=== PATIENT | male | born 1985 ===

== ENCOUNTER 2024-04-23 13:14 | Emergency (ER) | payer OTHER, SELFPAY ==
[2024-04-23] VITALS (12 sets, daily range): BP systolic 114–125; BP diastolic 69–91; BMI 30.9
[2024-04-23 14:03] LABS: Hematocrit 23.5 % (39.0-52.0); Hemoglobin 8.7 g/dL (13.0-18.0); Mean Corpuscular Hgb 33.7 pg (27.0-31.0); Mean Corpuscular Volume 91.1 fL (80.0-94.0); Red Blood Cell Count 2.58 10^6/uL (4.70-6.10); Red Cell Dist. Width 17.2 % (11.5-14.5)
[2024-04-23 14:17] LABS: ALT (SGPT) 36 U/L (0-50); AST (SGOT) 23 U/L (17-59); Albumin 4.1 g/dl (3.5-5.0); Alkaline Phosphatase 91 U/L (38-126); Blood Urea Nitrogen 18 mg/dl (9-20); Carbon Dioxide 26 mmol/L (22-30); Chloride 105 mmol/L (98-107); Glucose 105 mg/dl (70-99); Potassium 3.6 mmol/L (3.5-5.1); Sodium 140 mmol/L (135-145); Total Bilirubin 0.4 mg/dl (0.2-1.3); Total Protein 7.2 g/dl (6.3-8.2); eGFR > 60.00
[2024-04-23 14:30] LABS: Platelet Count 6 10^3/uL (130-400)
--- NOTE | 2024-04-23 15:12 | ED.GENMED ---
History of Present Illness
General
Chief Complaint: Fever
Source: patient
Time Seen by Provider: 04/23/24 14:37
History of Present Illness
History of Present Illness:
38-year-old male presents to the emergency room complaining of coughing up blood today. Patient has been feeling unwell for the past couple weeks. He has had fever, chills, malaise initially. Over the past several days he has developed some GI
discomfort and diarrhea. He describes the diarrhea as watery. He denies blood in the stool. Over the next 24 hours for the patient began experiencing hemoptysis. The amount of blood is more significant than blood-tinged sputum. He did provide a
picture which shows less than a teaspoon of blood without clots. He denies shortness of breath. Patient has experienced some easy bruising over the past several days as well.
Phy Exam
Physical Exam
Physical Exam:
General: Awake, Alert, Oriented X3. No distress, appears pale
Vitals: unremarkable
Head: Atraumatic
Eyes: Pupils equal, EOMI, pale conjunctiva
Throat: Airway intact, no exudates, 1 purpuric appearing lesion on the soft palate on the left
Neck: Trachea midline
Lungs: Clear and equal b/l
Heart: Regular rate, no murmurs
Abd: Soft, Nontender, No pulsatile mass
Neuro: Nonfocal
Skin: Warm, dry, no petechia or purpura noted, ecchymosis noted on the right calf, right low back, left arm.
Extremities: pulses equal b/l, no edema, brisk capillary refill
Course
Orders/Labs/Results
Orders:
Orders
04/23/24 13:46
Complete Blood Count/With Diff Urgent
Comprehensive Metabolic Panel Urgent
Manual Differential Urgent
Blood Culture Urgent
MEDARDO Source: Blood/Venous
Specimen Description:
04/23/24 14:54
CR Chest - 2 Views Urgent
Comment:
Reason For Exam: hemoptysis, fever,
04/23/24 15:08
Type+Screen Urgent
04/23/24 15:10
Stool Culture Urgent
MEDARDO Source: Feces/Stool
Specimen Description:
Comment: please include testing for E coli 0157 (HUS)
Stool For WBC Urgent
MEDARDO Source: Feces/Stool
Specimen Description:
04/23/24 15:55
Blood Bank Products [* Blood Bank Products] Urgent
Blood Bank Products: *Plt Single Donor Leuko
Quantity: 1
Transfuse Today: Yes
Reason: Thrombocytopenia
04/23/24 16:27
D-Dimer Urgent
Fibrinogen Urgent
PTT Urgent
Prothrombin Time Urgent
Abnormal Lab Results
04/23/24 04/23/24
13:46 16:27
WBC 4.0 L 10^3/uL
(4.8-10.8)
RBC 2.58 L 10^6/uL
(4.70-6.10)
Hgb 8.7 L g/dL
(13.0-18.0)
Hct 23.5 L %
(39.0-52.0)
MCH 33.7 H pg
(27.0-31.0)
RDW 17.2 H %
(11.5-14.5)
Plt Count 6 L* 10^3/uL
(130-400)
PT 17.2 H Sec
(11.4-14.6)
D-Dimer 15.31 H ug/mlFEU
(0.00-0.50)
Glucose 105 H mg/dl
(70-99)
04/23/24 13:46
04/23/24 13:46
Vital Signs
Initial and Last Documented VS:
Initial Vital Signs
Temp Pulse Resp BP Pulse Ox
98.1 F 73 18 114/80 99
04/23/24 13:32 04/23/24 13:32 04/23/24 13:32 04/23/24 13:32 04/23/24 13:32
Last Documented Vital Signs
Temp Pulse Resp BP Pulse Ox
98.5 F 83 27 118/76 100
04/23/24 18:05 04/23/24 19:00 04/23/24 19:00 04/23/24 19:00 04/23/24 19:00
MDM/Problems Addressed
Differential Diagnosis Includes:
Viral illness, hemolytic uremic syndrome, TTP, ITP
MDM/Problems Addressed:
Patient presents with fever, chills, GI symptoms and diarrhea. Patient also began experiencing hemoptysis over the past day or so. He is found to have a profoundly low platelet count at 6. Other hematologic cell lines are also depressed with a
white count of 4.0 and a RBC count of 2.58. Shortly after evaluating the patient I was contacted by the pathologist, Dr. 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 I also discussed the patient's
presentation with Dr. Steele, who is on-call for heme-onc. Dr. Cervantes came to the emergency room to evaluate the patient. He discussed the patient's case with Dr. Sanon. He suggested the best course of action was to transfer the patient to a
tertiary care hospital that cannot perform emergent induction. Given the patient has had hemoptysis he recommended that the patient receive a multi donor pack of platelets which are leukocyte poor. This was ordered and the patient did receive
this. Dr. Steele discussed the patient's case with Dr. Bond at [place] who accepted the patient in transfer. Patient was transferred via ground. Patient remained stable here in the emergency room awaiting transfer
*Radiology
Radiology exam reviewed: radiology read reviewed
*Pulse Oximetry
Patient hypoxic: no
*Critical Care Note
Total Time (30-74mins, 75-104mins- exclusive of procedures): 45 min
comment:
Critical care statement: A total of 45 minutes of critical care time was provided for this patient. This includes management of unstable vital signs, evaluation of the patient at bedside, reviewing the patient's pertinent medical records, discussion
with consultants, review of old EKGs and review of pertinent medical records. This time with separate from time utilized to perform the aforementioned documented procedures
ED Attending Note
-
Portions of this chart may have been created with voice recognition software.� Occasional wrong word or��sound alike� substitutions may have occurred due to the inherent limitations of voice recognition software.
Discharge Plan
Departure
Patient Disposition: [facility]
Date of Disposition: 04/23/24
Time of Disposition: 15:59
Condition: Serious
Discharge Problem:
Thrombocytopenia, Hemoptysis, APL (acute promyelocytic leukemia)
Prescriptions:
No Action
cholestyramine (with sugar) 4 gram powder
1 ea PO BID
Referrals:
Darwin Prater MD [Family Provider] -
Hospital Transfer
Other hospital: [facility]
I certify that the patient requires transfer: Yes
Discussed case with accepting physician: Varun (Dr. Steele discussed with dr. Bond)
Reason for transfer: specialties available
Interventions
Interventions:
*Risk Screen - Suicide Last Done: 04/23/24 13:32
*General Assessment Last Done: 04/23/24 13:32
*Neglect/Abuse Screening Last Done: 04/23/24 13:32
ED- Fall Risk Assessment Last Done: 04/23/24 15:14
ED- Neurological Assessment Last Done: 04/23/24 15:14
ED-Skin Assessment Last Done: 04/23/24 15:14
Discharge Date and Time
Print Language: GREEK
[2024-04-23 16:46] LABS: PT 17.2 Sec (11.4-14.6)
[2024-04-23 16:47] LABS: APTT 34.1 Sec (23.4-35.0)
[2024-04-23 16:57] LABS: D-Dimer 15.31 ug/mlFEU (0.00-0.50)
[2024-04-23 17:18] LABS: Fibrinogen 218 MG/DL (199-459)
[2024-04-24 10:11] LABS: Band Neutrophils 1 % (0-3); Segmented Neutrophils 9 % (42-75)
[2024-04-24 10:12] LABS: Anisocytosis 1+; Lymphocytes 51 % (20-51); Metamyelocytes 5 % (-); Monocytes 4 % (2-9); Myelocytes 8 % (-); Normal RBC Morphology No; Ovalocytes 1+; Platelets Checked Yes; Polychromasia 1+; Promyelocytes 18 % (-); Total Cells Counted 100
[2024-04-24 10:13] LABS: Absolute Neutrophils -Man Diff 0.4 10^3/uL (1.4-6.5); Blasts 4 % (-)
== END 2024-04-23 20:16 | disposition short-term general hospital (02) ==
LOC: EMR 13:14
PROVIDERS: Emergency Medicine; EMERGENCY PHYSICIAN Emergency Medicine; FAMILY PHYSICIAN Family Medicine
DX: D69.6 Thrombocytopenia, unspecified (principal); R04.2 Hemoptysis; C92.40 Acute promyelocytic leukemia, not having achieved remission; R50.9 Fever, unspecified
CPT/HCPCS: 99291; 71046; 80053; 85025; 85379; 85384; 85610; 85730; 86850; 86900; 86901; 87040; 99284; P9073

== ENCOUNTER 2025-07-03 06:31 | Emergency (ER) | payer SELFPAY ==
[2025-07-03 06:33] VITALS: BP 132/87
--- NOTE | 2025-07-03 06:58 | ED.GENMED ---
History of Present Illness
<Doreen Green MD, Resident - Last Filed: 07/03/25 10:24>
General
Chief Complaint: Back Pain
Source: patient
Time Seen by Provider: 07/03/25 06:38
History of Present Illness
History of Present Illness:
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 Deonte Bond at [facility]) who presents with week-long right lower back pain that radiates through the buttocks and down the right leg. He states that started
about a week ago when he was working out on the elliptical inclined to 20 and felt that he 'pulled' something. Since then, he has tried taking Tylenol, about 1000 mg/day, Motrin, and lidocaine patches, all without relief. He describes the pain as
constant that is worse with sitting up, better with standing. He said it 'shoots' down the back of his leg. He also endorses 1 episode of dysuria with right testicular pain, however states that this was a one-time thing and has not reoccurred. He
denies new sexual partners, fever/chills, dizziness, nausea, vomiting, pain elsewhere, and other urinary symptoms.
Phy Exam
<Doreen Green MD, Resident - Last Filed: 07/03/25 10:24>
General Physical Exam
General Presentation: well appearing and mild distress
General Skin: warm and dry
General Habitus: normal
General Mental: alert
Cardiovascular Exam
Cardiovascular Exam: regular rate/rhythm and no edema
Pulmonary Exam
Pulmonary Exam: lungs clear and no respiratory distress
Gastrointestinal Exam
Gastrointestinal Exam: non tender, soft and non distended
Musculoskeletal Exam
Musculoskeletal Exam: back pain (Lower back pain radiating down right buttock and thigh, positive straight leg test)
Skin Exam
Skin Exam: normal color and warm/dry
Course
<Doreen Green MD, Resident - Last Filed: 07/03/25 10:24>
Orders/Labs/Results
Orders:
Orders
07/03/25 07:14
CT Abd/pel Without Iv Or Oral Urgent
Comment:
Reason For Exam: back pain, hx of APML
07/03/25 07:22
Dexamethasone Sod Phosphate [Decadron] 10 mg IV NOW STA
Ketorolac [Toradol] 15 mg IV NOW STA
Lidocaine [Lidocaine 4% Patch] 1 patch TOPICAL ONCE ONE
Apply Lidocaine patch(s) to:: back
07/03/25 07:56
Complete Blood Count/With Diff Urgent
Comprehensive Metabolic Panel Urgent
Urinalysis Reflex To Culture Urgent
Date Specimen was Collected: 07/03/25
Time Specimen was Collected: 07:16
07/03/25 08:30
Oxycodone [Roxicodone] 5 mg PO NOW STA
Abnormal Lab Results
07/03/25
07:56
WBC 13.2 H 10^3/uL
(4.8-10.8)
Absolute Neuts (auto) 8.2 H 10^3/uL
(1.4-6.5)
Absolute Monos (auto) 1.4 H 10^3/uL
(0.1-0.6)
Monocytes % 10.3 H %
(1.7-9.3)
Chloride 109 H mmol/L
(98-107)
07/03/25 07:56
07/03/25 07:56
Vital Signs
Initial and Last Documented VS:
Initial Vital Signs
Temp Pulse Resp BP Pulse Ox
98.4 F 78 16 132/87 98
07/03/25 06:33 07/03/25 06:33 07/03/25 06:33 07/03/25 06:33 07/03/25 06:33
Last Documented Vital Signs
Temp Pulse Resp BP Pulse Ox
98.4 F 78 16 128/83 98
07/03/25 06:33 07/03/25 06:33 07/03/25 06:33 07/03/25 10:00 07/03/25 10:00
<Kamar Barros MD - Last Filed: 07/03/25 10:16>
Orders/Labs/Results
Orders:
Orders
07/03/25 07:14
CT Abd/pel Without Iv Or Oral Urgent
Comment:
Reason For Exam: back pain, hx of APML
07/03/25 07:22
Dexamethasone Sod Phosphate [Decadron] 10 mg IV NOW STA
Ketorolac [Toradol] 15 mg IV NOW STA
Lidocaine [Lidocaine 4% Patch] 1 patch TOPICAL ONCE ONE
Apply Lidocaine patch(s) to:: back
07/03/25 07:56
Complete Blood Count/With Diff Urgent
Comprehensive Metabolic Panel Urgent
Urinalysis Reflex To Culture Urgent
Date Specimen was Collected: 07/03/25
Time Specimen was Collected: 07:16
07/03/25 08:30
Oxycodone [Roxicodone] 5 mg PO NOW STA
Abnormal Lab Results
07/03/25
07:56
WBC 13.2 H 10^3/uL
(4.8-10.8)
Absolute Neuts (auto) 8.2 H 10^3/uL
(1.4-6.5)
Absolute Monos (auto) 1.4 H 10^3/uL
(0.1-0.6)
Monocytes % 10.3 H %
(1.7-9.3)
Chloride 109 H mmol/L
(98-107)
07/03/25 07:56
07/03/25 07:56
Vital Signs
Initial and Last Documented VS:
Initial Vital Signs
Temp Pulse Resp BP Pulse Ox
98.4 F 78 16 132/87 98
07/03/25 06:33 07/03/25 06:33 07/03/25 06:33 07/03/25 06:33 07/03/25 06:33
Last Documented Vital Signs
Temp Pulse Resp BP Pulse Ox
98.4 F 78 16 128/83 98
07/03/25 06:33 07/03/25 06:33 07/03/25 06:33 07/03/25 10:00 07/03/25 10:00
<Doreen Green MD, Resident - Last Filed: 07/03/25 10:24>
MDM/Problems Addressed
Differential Diagnosis Includes:
Herniated disc
Radiculopathy
Spinal/bone metastases secondary to APML
Renal colic
UTI
MDM/Problems Addressed:
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 Deonte Bond at [facility]) who presents with week-long right lower back pain that radiates through the buttocks and down the right leg.
#Lower back pain
#History of a APML
He had blood work and follow-up with his medical oncologist a few weeks ago. Everything was WNL. Given the distribution of his pain and that it started shortly after the gym, most likely etiology is radiculopathy or herniated disc causing
sciatica. Renal colic or UTI is also possible however less likely given he only had 1 episode of dysuria. Given his oncological history, further imaging is warranted.
- CBC w/ differential: WBC 13.2 otherwise WNL, no clinical correlation for infection
- CMP unremarkable
- UA unremarkable
- NC CT A/P: No significant abnormality identified in the abdomen or pelvis, within the limits of unenhanced CT.
- Pain control: Lidocaine patch, IV Toradol 15 mg, IV dexamethasone 10 mg, oxycodone 5 mg p.o. x 1
Plan to discharge on Medrol pack, 3 days of oxycodone 5 mg p.o., and instructions to take Tylenol and Motrin [id number] plus supportive care/RICE.
<Doreen Green MD, Resident - Last Filed: 07/03/25 10:24>
*Pulse Oximetry
SaO2: 98
Oxygen Mode of Delivery: Room air
Patient hypoxic: no
*Critical Care Note
Total Time (30-74mins, 75-104mins- exclusive of procedures): Not Applicable
<Doreen Green MD, Resident - Last Filed: 07/03/25 10:24>
Update Note
Update Note:
8:30 AM: He reports that his pain went from 8/10 to 6/10 with lidocaine patches, IV Toradol 15 mg, and IV dexamethasone 10 mg. We added on one-time dose of p.o. oxycodone 5 mg with plan to reassess pain control.
10 AM: 30 to 40 minutes after oxycodone 5 mg p.o., he reports that his pain is now 4/10 and he is comfortable going home with that. He would like to avoid narcotics due to their side effects if possible, but is okay with a short dose for pain
control.
ED Attending Note
<Doreen Green MD, Resident - Last Filed: 07/03/25 10:24>
-
Portions of this chart may have been created with voice recognition software.� Occasional wrong word or��sound alike� substitutions may have occurred due to the inherent limitations of voice recognition software.
<Kamar Barros MD - Last Filed: 07/03/25 10:16>
ED Attending Note
Patient seen and examined by attending physician: Yes
I performed a history and physical exam of patient and discussed management with resident, I reviewed resident's note and agree with documented findings and plan of care.: Yes
ED Attending Note:
I have seen and evaluated the patient with a [id number] encounter. I have spoken to the resident and involved in the medical history, the physical exam, medical decision making.
Evaluation and management service: agree unless noted differently below.
Results interpretation: agree unless noted differently below.
Focused HPI: 39-year-old male with a past medical history of APML currently in remission who presents to the ER for evaluation of back pain. Patient reports onset of symptoms a week ago rather acutely�he says that he noticed some pain in his back
that started while he was on the elliptical at the gym. He says symptoms have continued since then. He reports pain in the right low back. He says that he has shooting pains down the right buttock and into the right thigh. Symptoms are worse
with movement. No relieving factors noted�he has been taking Tylenol without adequate control. He denies any weakness or numbness in the legs. He denies any bowel or bladder incontinence. He denies any saddle anesthesia. Triage note mentions
some pains in his right testicle�patient denies consistent testicular pains but says that he had some transient burning of the right testicle yesterday while urinating. He denies any dysuria, hematuria, change in frequency. He denies any abdominal
pains or vomiting. He denies any other acute complaints.
Physical exam: Awake and alert, laying on his side in bed appears uncomfortable. His vital signs are all within normal limits. He has no midline tenderness of the thoracic or lumbar spine but does have right paraspinal tenderness approximately
L4-L5 level. He has a positive straight leg raise test on the right. Motor and sensory intact in the legs bilaterally. exam patient has no scrotal swelling, no testicular tenderness, normal testicular lie, no palpable hernia., No saddle
anesthesia.
Medical Decision Makin-year-old male presents for evaluation of right low back pain with radicular symptoms down the right leg started acutely while at the gym last week. He does have history of APML. Had some transient pains in the right
testicle yesterday but these have resolved. Plan to check basic labs given his medical history. Check urinalysis given his testicular pain. Check CT abdomen pelvis. Differential includes but not limited to lumbar radiculopathy (bulging/herniated
disc, DJD, etc), nephrolithiasis, UTI, myofascial strain/back spasm. Nothing by history or exam to suggest emergent diagnoses such as cauda equina in my judgment no indication for emergent MRI at this point in time.
CT no acute abnormalities. Labs reviewed no clinically significant abnormalities. Urinalysis bland. Symptoms controlled with medications here in the ER. Likely lumbar radiculopathy. Stable for discharge with supportive care. Follow-up with PCP.
Discharge Plan
Departure
Patient Disposition: Home (Routine Discharge)
Date of Disposition: 07/03/25
Time of Disposition: 10:10
Patient with high blood pressure during this ER visit?: No
Condition: Good
Discharge Problem:
Lumbar radiculopathy
Instructions: Low Back Pain (DC), Radiculopathy (DC)
Prescriptions:
New
methylprednisolone [Medrol (Adrian)] 4 mg tablets,dose pack
See Rx Instructions .ROUTE .COMPLEX Qty: 21 0RF
Rx Instructions:
for 6 days
oxycodone 5 mg tablet
5 mg PO TID PRN (Reason: Pain) Qty: 10 0RF
No Action
cholestyramine (with sugar) 4 gram powder
1 ea PO BID
Referrals:
Deonte Bond MD [Family Provider, Hematology / Oncology]
Activity Restrictions/Additional Instructions:
Thank you for visiting the Emergency Department at [facility].
1. Please schedule a follow up appointment as directed. Call first thing tomorrow morning to make an appointment.
2. If indicated, please take your medications as instructed and indicated on discharge paperwork.
3. If any of your symptoms do not improve, or persist, or become more severe within 6-12 hours, please return to the emergency department for further care.
4. Please return to the emergency department if you develop a headache, neck pain/stiffness, fever greater than 100.4F, chest pain, shortness of breath, persistent nausea, vomiting, slurred speech, difficulty walking, numbness/tingling, weakness,
signs of infection or any other symptoms that are worrisome to you.
Please call [phone] if you have any questions.
Interventions
Interventions:
*Risk Screen - Suicide Last Done: 07/03/25 06:33
*General Assessment Last Done: 07/03/25 06:33
*Neglect/Abuse Screening Last Done: 07/03/25 06:33
*ED- Fall Risk Assessment Last Done: 07/03/25 06:45
ED-Musculoskeletal Assessment Last Done: 07/03/25 08:00
Discharge Date and Time
Print Language: FAROESE
[2025-07-03] MEDS: TORADOL 15 MG IV (07:45)
[2025-07-03] MEDS: DECADRON 10 MG IV (07:45)
[2025-07-03] MEDS: LIDOCAINE 4% PATCH 1 PATCH TOPICAL (07:46)
[2025-07-03 08:22] LABS: Hematocrit 43.6 % (39.0-52.0); Hemoglobin 15.1 g/dL (13.0-18.0); Mean Corp Hgb Conc. 34.6 g/dL (33.0-37.0); Mean Corpuscular Volume 84.5 fL (80.0-94.0); Nucleated Red Blood Cells % 0 % (-); Platelet Count 297 10^3/uL (130-400); Red Cell Dist. Width 12.9 % (11.5-14.5)
[2025-07-03 08:42] LABS: Urine Character Clear (Clear)
[2025-07-03 08:57] LABS: ALT (SGPT) 27 U/L (0-50); AST (SGOT) 22 U/L (17-59); Albumin 4.2 g/dl (3.5-5.0); Alkaline Phosphatase 100 U/L (38-126); Blood Urea Nitrogen 19 mg/dl (9-20); Calcium 9.1 mg/dl (8.4-10.2); Carbon Dioxide 24 mmol/L (22-30); Chloride 109 mmol/L (98-107); Glucose 93 mg/dl (70-99); Potassium 4.4 mmol/L (3.5-5.1); Sodium 138 mmol/L (135-145); Total Protein 7.1 g/dl (6.3-8.2); eGFR > 60.00
[2025-07-03] MEDS: ROXICODONE 5 MG PO (09:14)
[2025-07-03 10:00] VITALS: BP 128/83
== END 2025-07-03 10:15 | disposition home or self-care (01) ==
LOC: EMR 06:31
PROVIDERS: EMERGENCY PHYSICIAN Emergency Medicine; FAMILY PHYSICIAN Internal Medicine Hematology & Oncology
DX: M54.16 Radiculopathy, lumbar region (principal); C92.41 Acute promyelocytic leukemia, in remission
CPT/HCPCS: 99284; 96374; 96375; 74176; 80053; 81003; 85025

== ENCOUNTER 2025-08-26 19:46 | Emergency (ER) | payer SELFPAY ==
[2025-08-26 19:52] VITALS: BP 147/81
[2025-08-26 20:41] VITALS: BP 137/74
[2025-08-26 20:43] VITALS: BMI 33.1
--- NOTE | 2025-08-26 21:43 | ED.GENMED ---
History of Present Illness
General
Chief Complaint: Extremity Pain (non-traumatic)
Source: patient
Exam Limitations: none
Time Seen by Provider: 08/26/25 21:39
Nursing documentation reviewed up to this point in time: agreed with
History of Present Illness
History of Present Illness:
Patient is a 39-year-old male with past medical history of leukemia completed chemotherapy December 2024. He is currently in remission. He is followed at [place].
Patient has had chronic pain in his left arm /patient shoulder area since last year. Patient had chemotherapy for leukemia and pain started while getting chemotherapy.
During chemo pt had several PICC lines 1 in his right arm 1 in his left arm at different times. After his PICC line was removed his oncologist at [facility] did imaging including MRI of his left shoulder and ultrasound in order
to find out the cause of the pain. They have not identified a cause of pain.
His ultrasound was negative for clot .his MRI of his shoulder did show some tendinopathy of his rotator cuff and a questionable labrum issue. Patient continues to complain of pain since last year and has not been eval by orthopedics. He has been
taking Tylenol and ibuprofen without relief. He denies any swelling numbness tingling to fingers. He reports pain is a burning sensation. He denies any shortness of breath he denies any numbness tingling.
No chest pain no shortness of breath .
Phy Exam
General Physical Exam
General Presentation: no apparent distress
General age: appears stated age
General Skin: warm and dry
General Habitus: normal
General Mental: alert
General Hydration: appears well hydrated
Neurological Exam
Neurological Exam: alert, oriented x3 and other (Intact sensation to bilateral lower extremities)
Musculoskeletal Exam
Musculoskeletal Exam: full ROM and other (No obvious swelling to left upper arm strong pulses no erythema; no bony shoulder tenderness )
Skin Exam
Skin Exam: normal color and warm/dry
Course
Vital Signs
Initial and Last Documented VS:
Initial Vital Signs
Temp Pulse Resp BP Pulse Ox
98.2 F 90 16 147/81 100
08/26/25 19:52 08/26/25 19:52 08/26/25 19:52 08/26/25 19:52 08/26/25 19:52
Last Documented Vital Signs
Temp Pulse Resp BP Pulse Ox
98.2 F 81 18 137/74 98
08/26/25 20:41 08/26/25 20:41 08/26/25 20:41 08/26/25 20:41 08/26/25 20:41
Jtac consulted with Physician
Jtac consulted with physician?: Yes
Name of Physician Consulted: Noh
MDM/Problems Addressed
Differential Diagnosis Includes:
Not limited to chronic pain, radicular pain
MDM/Problems Addressed:
Patient has had chronic pain in his left arm shoulder since last year. He has a history of leukemia and pain started during chemotherapy. As documented above his oncologist has done imaging including MRI and ultrasound of the arm and shoulder
without diagnosis. Ultrasound was negative for DVT in the past MRI showed some tendinopathy and questionable labrum issue. He has not seen orthopedics. He presented today because he is consistently having pain.
Pain is not relieved with Tylenol Motrin. he reports his pain is burning in natures HE . He Does have some mild neck discomfort but no recent injury.
I discussed with patient that he will need to see orthopedics there is no obvious evidence of acute problem at this time there is no obvious swelling he is strong pulses he is nontoxic-appearing. Will give patient a dose of Decadron now and give
patient 5 days of steroids for possible radicular pain recommend orthopedic follow-up.
Chronic conditions affecting care:
hx of leukemia
*Pulse Oximetry
SaO2: 98
Oxygen Mode of Delivery: Room air
Patient hypoxic: no
*Critical Care Note
Total Time (30-74mins, 75-104mins- exclusive of procedures): Not Applicable
ED Attending Note
-
Portions of this chart may have been created with voice recognition software.� Occasional wrong word or��sound alike� substitutions may have occurred due to the inherent limitations of voice recognition software.
Discharge Plan
Departure
Patient Disposition: Home (Routine Discharge)
Date of Disposition: 08/26/25
Time of Disposition: 22:13
Patient with high blood pressure during this ER visit?: Yes
Condition: Fair
Covid-19: Not Applicable
Discharge Problem:
Arm pain, left
Instructions: Muscle and Bone Pain (DC), BLOOD PRESSURE
Prescriptions:
New
prednisone 20 mg tablet
40 mg PO DAILY Qty: 10 0RF
No Action
cholestyramine (with sugar) 4 gram powder
1 ea PO BID
methylprednisolone [Medrol (Adrian)] 4 mg tablets,dose pack
See Rx Instructions .ROUTE .COMPLEX Qty: 21 0RF
Rx Instructions:
for 6 days
oxycodone 5 mg tablet
5 mg PO TID PRN (Reason: Pain) Qty: 10 0RF
Referrals:
Rory Godoy MD [Active, Orthopedics]
Fab Elder PA-C [Family Provider]
Activity Restrictions/Additional Instructions:
As discussed you were given a dose of steroids here in the ER start steroids for the next 5 days. Please follow-up with orthopedics call tomorrow to make an appointment return if any worsening of symptoms.
Interventions
Interventions:
*Risk Screen - Suicide Last Done: 08/26/25 19:52
*General Assessment Last Done: 08/26/25 20:44
*Neglect/Abuse Screening Last Done: 08/26/25 19:52
*ED- Fall Risk Assessment Last Done: 08/26/25 20:44
*ED COVID-19 Vaccine History Last Done: 08/26/25 20:44
*ED Influenza Vaccine History Last Done: 08/26/25 20:44
ED-Skin Assessment Last Done: 08/26/25 20:48
ED-Peripheral Vascular Assessment Last Done: 08/26/25 20:47
ED-Musculoskeletal Assessment Last Done: 08/26/25 20:46
Discharge Date and Time
Print Language: LITHUANIAN
[2025-08-26] MEDS: DECADRON 10 MG IM (22:13)
== END 2025-08-26 22:20 | disposition home or self-care (01) ==
LOC: EMR 19:46
PROVIDERS: EMERGENCY PHYSICIAN Emergency Medicine; FAMILY PHYSICIAN Physician Assistant Medical
DX: M79.602 Pain in left arm (principal); G89.29 Other chronic pain; Z85.6 Personal history of leukemia; Z92.21 Personal history of antineoplastic chemotherapy
CPT/HCPCS: 96372; 99284